=== PATIENT | female | born 1975 | race Caucasian/White ===

== ENCOUNTER → 2024-12-12 | Day surgery (SDC) | payer BC ==
--- NOTE | 2024-12-12 10:40 | RAD REPORT ---
Exam: THYROID NODULE FNA PREPROCEDURE DIAGNOSIS: thyroid nodule. E04.1 PROCEDURE: Left thyroid nodule FNA. SPECIMEN: 5 - 25-gauge FNA specimens of the left thyroid nodule. TECHNIQUE: Prior to the procedure , the risks and benefits of a thyroid FNA were explained with the patient abelino irving consented fully to the procedure. Real-time ultrasound was used to identify the 2.3 cm nodule lower pole left lobe thyroid gland. The n taye was then prepped and draped in the usual sterile fashion. Lidocaine was used to anesthetize the skin and soft tissues down towards the thyroid nodule. 5 separa te 25-gauge needles were then placed using ultrasound guidance into the nodule and specimen was obtained within the needle using a to and fro motion. These needles were placed in solution provided by pathology. The patient tolerated the procedure well without immediate post procedure complication. IMPRESSION: Ultrasound-guided fine-needle aspiration left thyroid nodule
== END ==
LOC: FNA 09:25
PROVIDERS: ATTEND Internal Medicine
PROC: 0GJK3ZZ Inspection of Thyroid Gland, Percutaneous Approach (ICD-10-PCS; principal; 2024-12-12)
DX: E04.1 Nontoxic single thyroid nodule (principal)
CPT/HCPCS: 88162